=== PATIENT | male | born 1975 | race Caucasian/White ===

== ENCOUNTER 2016-09-08 07:36 | Emergency (ER) | payer OTHER ==
[~2016-09-08] VITALS: Ht 177.8 cm; Wt 137.9 kg
[~2016-09-08 07:36] MED LIST: DOXYCYCLINE HY100 MG PO; EYE DROP TEARS15 ML BOTH EYES; MOTRIN600 MG PO; NOHOMEMEDS; PREDNISONE50 MG PO; VALTREX50 MG/ML PO
[2016-09-08] MEDS ORDERED: CORTISPORI200 DROPS/ BOTH EARS (08:41)
[2016-09-08 08:46] VITALS: BP 151/108
== END 2016-09-08 08:48 | disposition home or self-care (01) ==
LOC: EME 07:36
DX: H60.391 Other infective otitis externa, right ear (principal)
CPT/HCPCS: 99281; 99283

== ENCOUNTER 2016-09-11 11:35 | Emergency (ER) | payer OTHER ==
[~2016-09-11] VITALS: Ht 177.8 cm; Wt 136.1 kg
[~2016-09-11 11:35] MED LIST changes: +CORTISPORI200 DROPS/ BOTH EARS
[2016-09-11] MEDS ORDERED: KEFLEX500 MG PO (13:30)
[2016-09-11] MEDS ORDERED: MOTRIN800 MG PO (13:30)
[2016-09-11] MEDS ORDERED: GUAIFENESIN600 M1 PO (13:30)
[2016-09-11 13:55] VITALS: BP 170/98
== END 2016-09-11 13:55 | disposition home or self-care (01) ==
LOC: EME 11:35
DX: L03.211 Cellulitis of face (principal); S00.86XA Insect bite (nonvenomous) of other part of head, initial encounter; W57.XXXA Bitten or stung by nonvenomous insect and other nonvenomous arthropods, initial encounter; H60.91 Unspecified otitis externa, right ear; J02.9 Acute pharyngitis, unspecified; F17.200 Nicotine dependence, unspecified, uncomplicated; Z59.0 Homelessness
CPT/HCPCS: 99281; 99284

== ENCOUNTER 2016-12-03 11:51 | Emergency (ER) | payer OTHER ==
[~2016-12-03] VITALS: Ht 177.8 cm; Wt 140.9 kg
[~2016-12-03 11:51] MED LIST changes: +GUAIFENESIN600 M1 PO; +KEFLEX500 MG PO; +MOTRIN800 MG PO
[2016-12-03] MEDS ORDERED: ULTRAM50 MG PO (12:31)
[2016-12-03] MEDS ORDERED: PREDNISONE10 MG PO (12:31)
[2016-12-03] MEDS ORDERED: FLEXERIL10 MG PO (12:31)
[2016-12-03 12:37] VITALS: BP 168/131
== END 2016-12-03 12:38 | disposition home or self-care (01) ==
LOC: EME 11:51
DX: M54.41 Lumbago with sciatica, right side (principal); F17.200 Nicotine dependence, unspecified, uncomplicated
CPT/HCPCS: 99281; 99284; J1100; J3010